=== PATIENT | female | born 1935 | race Caucasian/White ===

== ENCOUNTER → 2017-07-23 | Outpatient (CLI) | payer OTHER | END | disposition home or self-care (01) | LOC: NUC 06:34 | DX: R74.0 Nonspecific elevation of levels of transaminase and lactic acid dehydrogenase [LDH] (principal); K80.20 Calculus of gallbladder without cholecystitis without obstruction; D69.6 Thrombocytopenia, unspecified; Z85.038 Personal history of other malignant neoplasm of large intestine | CPT/HCPCS: 78226; A9537 ==

== ENCOUNTER 2018-03-28 16:53 | Inpatient (IN) | payer OTHER ==
[~2018-03-28] VITALS: Ht 154.9 cm; Wt 76.1 kg
[2018-03-28 17:29] LABS: HEMATOCRIT 39.7 % (36.0-46.0); HEMOGLOBIN 14.2 G/DL (11.9-15.5); MCH 30.1 PG (29.0-34.0); MCHC 35.8 G/DL (30.0-36.0); MCV 84.1 FL (83-99); PLATELET COUNT 169 K/uL (156-360); RBC DIS.WIDTH-CV 12.8 % (11.8-14.6); RED BLOOD COUNT 4.72 M/uL (3.80-5.20); WHITE BLOOD COUNT 11.3 K/uL (4.1-10.2)
[2018-03-28 17:39] LABS: ALBUMIN 3.8 g/dL (3.2-4.8)
[2018-03-28 17:40] LABS: CHLORIDE 89 mEq/L (99-109); POTASSIUM 3.6 mEq/L (3.7-5.4); SODIUM 126 mEq/L (136-147)
[2018-03-28 17:42] LABS: GLUCOSE 237 mg/dL (70-99); TOTAL PROTEIN 6.8 g/dL (6.4-8.3)
[2018-03-28 17:44] LABS: TOTAL BILIRUBIN 0.6 mg/dL (0.0-1.0)
[2018-03-28 17:45] LABS: ALKALINE PHOSPHATASE 95 IU/L (3-129)
[2018-03-28 17:46] LABS: CREATININE 1.2 mg/dL (0.6-1.3); GFR ESTIMATE (CALCULATED) 46 mL/min/
[2018-03-28 17:47] LABS: AST (GOT) 47 IU/L (2-34); UREA NITROGEN (BUN) 22 mg/dL (9-23)
[2018-03-28 17:49] LABS: ALT (GPT) 48 IU/L (3-49)
[2018-03-28 17:50] LABS: TROP-I INTERPRETATION NEGATIVE; TROPONIN-I < 0.01 ng/mL (0.0-0.30)
[2018-03-28] MEDS ORDERED: CARTIA XT180 MG PO (19:23)
[2018-03-28] MEDS ORDERED: LO-DOSE ASPIRIN81 M1 PO (19:24)
[2018-03-28] MEDS ORDERED: VALSARTAN-HCTZ1 EAC3 PO (19:24)
[2018-03-28] MEDS ORDERED: LEVOTHYROXINE50 MCG PO (19:24)
[2018-03-28] MEDS ORDERED: METFORMIN HCL850 MG PO (19:24)
[2018-03-28 20:13] LABS: APPEARANCE CLEAR ((CLEAR)); BILIRUBIN NEGATIVE; BLOOD NEGATIVE; COLOR YELLOW ((YELLOW)); GLUCOSE (STRIP) NEGATIVE; KETONES NEGATIVE; LEUKOCYTES NEGATIVE; NITRITE NEGATIVE; PROTEIN (STRIP) NEGATIVE; SPECIFIC GRAVITY 1.014 (1.000-1.030); UCUL ADDED? NO; UROBILINOGEN 0.2 MG/DL (0.2-1.0)
[2018-03-28 21:56] VITALS: BP 164/80
[2018-03-28 23:28] LABS: TROP-I INTERPRETATION NEGATIVE; TROPONIN-I < 0.01 ng/mL (0.0-0.30)
[2018-03-28 23:33] LABS: CHLORIDE 91 MEQ/L (99-109); CREATININE 0.9 MG/DL (0.6-1.3); GFR ESTIMATE (CALCULATED) > 59 mL/min/; GLUCOSE 266 mg/dL (70-99); POTASSIUM 4.2 MEQ/L (3.7-5.4); SODIUM 124 MEQ/L (136-147); UREA NITROGEN (BUN) 19 mg/dL (9-23)
[2018-03-29] VITALS (8 sets, daily range): BP systolic 138–190; BP diastolic 65–88
[2018-03-29 06:26] LABS: BASOPHIL (%) 0.4 % (0-1); EOSINOPHIL (%) 0.9 % (0-5); EOSINOPHIL COUNT 0.1 K/uL (0-0.3); HEMATOCRIT 36.7 % (36.0-46.0); HEMOGLOBIN 12.5 G/DL (11.9-15.5); IMMATURE GRANULOCYTE (%) 0.5 % (0.0-0.7); LYMPHOCYTE (%) 24.2 % (15-42); LYMPHOCYTE COUNT 1.4 K/uL (1.0-2.8); MCH 28.7 PG (29.0-34.0); MCHC 34.1 G/DL (30.0-36.0); MCV 84.4 FL (83-99); MONOCYTE (%) 7.7 % (3-12); MONOCYTE COUNT 0.4 K/uL (0-0.8); NEUTROPHIL (%) 66.3 % (45-76); NEUTROPHIL COUNT 3.7 K/uL (1.8-6.4); RBC DIS.WIDTH-CV 12.8 % (11.8-14.6); RBC DIS.WIDTH-SD 39.4 % (39-53); RED BLOOD COUNT 4.35 M/uL (3.80-5.20); WHITE BLOOD COUNT 5.6 K/uL (4.1-10.2)
[2018-03-29 06:38] LABS: PLAT.SUFFICIENCY DECREASED
[2018-03-29 06:47] LABS: PLATELET COUNT 106 K/uL (156-360)
[2018-03-30 03:50] VITALS: BP 146/68
[2018-03-30 06:39] LABS: HEMATOCRIT 39.1 % (36.0-46.0); HEMOGLOBIN 13.3 G/DL (11.9-15.5); MCV 85.4 FL (83-99); PLATELET COUNT 118 K/uL (156-360); RBC DIS.WIDTH-SD 39.9 % (39-53); RED BLOOD COUNT 4.58 M/uL (3.80-5.20); WHITE BLOOD COUNT 5.8 K/uL (4.1-10.2)
[2018-03-30 07:07] LABS: ALBUMIN 3.5 G/DL (3.2-4.8); ALKALINE PHOSPHATASE 78 IU/L (3-129); ALT (GPT) 33 IU/L (3-49); AST (GOT) 29 IU/L (2-34); CHLORIDE 93 MEQ/L (99-109); CREATININE 0.8 MG/DL (0.6-1.3); GFR ESTIMATE (CALCULATED) > 59 mL/min/; GLUCOSE 153 mg/dL (70-99); POTASSIUM 3.7 MEQ/L (3.7-5.4); SODIUM 127 MEQ/L (136-147); TOTAL BILIRUBIN 0.7 MG/DL (0.0-1.0); UREA NITROGEN (BUN) 12 mg/dL (9-23)
[2018-03-30 08:56] VITALS: BP 137/60
[2018-03-30 11:28] VITALS: BP 134/64
[2018-03-30 16:23] VITALS: BP 134/62
[2018-03-30 20:02] VITALS: BP 135/63
[2018-03-31 00:02] VITALS: BP 142/63
[2018-03-31 06:25] LABS: HEMATOCRIT 39.3 % (36.0-46.0); HEMOGLOBIN 13.3 G/DL (11.9-15.5); MCH 29.2 PG (29.0-34.0); MCHC 33.8 G/DL (30.0-36.0); MCV 86.2 FL (83-99); PLATELET COUNT 116 K/uL (156-360); RBC DIS.WIDTH-CV 13.2 % (11.8-14.6); RBC DIS.WIDTH-SD 41.5 % (39-53); RED BLOOD COUNT 4.56 M/uL (3.80-5.20); WHITE BLOOD COUNT 5.7 K/uL (4.1-10.2)
[2018-03-31 06:54] LABS: ALBUMIN 3.6 G/DL (3.2-4.8); ALKALINE PHOSPHATASE 86 IU/L (3-129); ALT (GPT) 38 IU/L (3-49); AST (GOT) 31 IU/L (2-34); CHLORIDE 97 MEQ/L (99-109); CREATININE 0.8 MG/DL (0.6-1.3); GFR ESTIMATE (CALCULATED) > 59 mL/min/; GLUCOSE 140 mg/dL (70-99); POTASSIUM 3.7 MEQ/L (3.7-5.4); SODIUM 133 MEQ/L (136-147); TOTAL BILIRUBIN 0.8 MG/DL (0.0-1.0); UREA NITROGEN (BUN) 11 mg/dL (9-23)
[2018-03-31 07:10] VITALS: BP 132/82
[2018-03-31 12:10] VITALS: BP 134/60
[2018-03-31 15:20] LABS: URIC ACID 3.7 mg/dL (3.1-9.2)
[2018-03-31 15:24] LABS: THYROTROPIN (TSH) 2.9 MIU/L (0.4-5.5)
[2018-03-31 16:35] VITALS: BP 130/60
[2018-03-31 20:26] VITALS: BP 143/73
[2018-04-01 03:30] VITALS: BP 140/64
[2018-04-01 06:49] LABS: HEMOGLOBIN 13.4 G/DL (11.9-15.5); MCH 28.8 PG (29.0-34.0); MCHC 33.5 G/DL (30.0-36.0); MCV 85.8 FL (83-99); PLATELET COUNT 117 K/uL (156-360); RBC DIS.WIDTH-CV 13.4 % (11.8-14.6); RBC DIS.WIDTH-SD 41.9 % (39-53); RED BLOOD COUNT 4.66 M/uL (3.80-5.20); WHITE BLOOD COUNT 6.3 K/uL (4.1-10.2)
[2018-04-01 07:26] VITALS: BP 116/72
[2018-04-01 07:51] LABS: CHLORIDE 101 MEQ/L (99-109); CREATININE 0.8 MG/DL (0.6-1.3); GFR ESTIMATE (CALCULATED) > 59 mL/min/; GLUCOSE 150 mg/dL (70-99); POTASSIUM 4.1 MEQ/L (3.7-5.4); SODIUM 136 MEQ/L (136-147); UREA NITROGEN (BUN) 11 mg/dL (9-23)
[2018-04-01 11:42] VITALS: BP 116/68
[2018-04-01 15:10] VITALS: BP 18/62
[2018-04-01 19:02] VITALS: BP 138/78
[2018-04-02 00:40] VITALS: BP 130/72
[2018-04-02 04:01] VITALS: BP 126/74
[2018-04-02 07:35] VITALS: BP 138/64
[2018-04-02] MEDS ORDERED: CEFDINIR300 MG PO (08:06)
== END 2018-04-02 09:20 | disposition home or self-care (01) | DRG 922 ==
LOC: EME 16:53 → ENRESERV 20:14 → CANRESERV 20:24 → ENRESERV 20:24 → 2EAST 20:37 → EDOF 20:37 → ENRESERV 20:42 → 2EAST 21:43
PROVIDERS: Emergency Medicine Emergency Medical Services; Hospitalist; Internal Medicine
DX: T67.3XXA Heat exhaustion, anhydrotic, initial encounter (principal); J18.9 Pneumonia, unspecified organism; E86.0 Dehydration; E87.1 Hypo-osmolality and hyponatremia; X30.XXXA Exposure to excessive natural heat, initial encounter; R55 Syncope and collapse; Z85.038 Personal history of other malignant neoplasm of large intestine; E03.9 Hypothyroidism, unspecified; K21.9 Gastro-esophageal reflux disease without esophagitis; E66.9 Obesity, unspecified; Z68.31 Body mass index [BMI] 31.0-31.9, adult; E87.6 Hypokalemia; I10 Essential (primary) hypertension; K76.0 Fatty (change of) liver, not elsewhere classified; K74.60 Unspecified cirrhosis of liver; D35.02 Benign neoplasm of left adrenal gland; Z85.828 Personal history of other malignant neoplasm of skin; K80.20 Calculus of gallbladder without cholecystitis without obstruction; I51.7 Cardiomegaly; E11.65 Type 2 diabetes mellitus with hyperglycemia; E86.1 Hypovolemia; Z90.49 Acquired absence of other specified parts of digestive tract
CPT/HCPCS: 70450; 71045; 71046; 71260; 74183; 80048; 80048 91; 80053; 81003; 82948; 83880; 83935; 84133; 84300; 84443; 84484; 84550; 85025; 85027; 93005; 99281; 99284; J0360; J0692; J0780; J1650; J7030; J7040